=== PATIENT | female | born 1940 | race Caucasian/White ===

== ENCOUNTER → 2017-06-02 | Outpatient (CLI) | payer MEDICARE, BC ==
[2017-06-02 13:58] LABS: ALBUMIN 3.9 g/dL (3.4-5.0); CALCIUM 9.1 mg/dL (8.5-10.1); CREATININE 0.9 mg/dL (0.6-1.3); POTASSIUM 4.2 mmol/L (3.5-5.1); TOTAL BILIRUBIN 0.5 mg/dL (<0.1-1.0); TOTAL PROTEIN 7.6 g/dL (6.4-8.2)
[2017-06-02 14:26] LABS: HEMATOCRIT 37.6 % (37.0-47.0); MCH 36.4 pg (26.0-34.0); MCHC 34.4 g/dL (28.0-37.0); MCV 105.7 fL (80.0-100.0); MPV 8.9 fl. (7.2-11.1); RBC 3.56 mil/uL (4.20-5.00); RDW-CV 15.1 % (10.5-14.5); WBC 8.4 thou/uL (4.0-11.0)
[2017-06-02 19:09] LABS: IgA 249 mg/dL (64-422); IgG 876 mg/dL (700-1600); IgM 250 mg/dL (26-217)
[2017-06-04 16:12] LABS: ANA INTERPRETATION Negative (Negative); ANTI-SSA 0.3 AI (0.0-0.9)
== END ==
LOC: M.MRI 08:30
PROVIDERS: Psychiatry & Neurology Neuromuscular Medicine
DX: J32.9 Chronic sinusitis, unspecified (principal); R25.1 Tremor, unspecified; F41.9 Anxiety disorder, unspecified; R26.9 Unspecified abnormalities of gait and mobility; W19.XXXA Unspecified fall, initial encounter; Y93.89 Activity, other specified; Y92.89 Other specified places as the place of occurrence of the external cause; Y99.8 Other external cause status

== ENCOUNTER → 2018-08-24 | Outpatient (CLI) | payer MEDICARE, BC | LOC: M.MRI 14:05 | DX: Z12.31 Encounter for screening mammogram for malignant neoplasm of breast (principal); G31.9 Degenerative disease of nervous system, unspecified; G93.6 Cerebral edema; F03.90 Unspecified dementia, unspecified severity, without behavioral disturbance, psychotic disturbance, mood disturbance, and anxiety; R26.9 Unspecified abnormalities of gait and mobility ==

== ENCOUNTER → 2020-12-03 | Outpatient (CLI) | payer MEDICARE, BC | LOC: M.RAD 14:22 | PROVIDERS: ATTEND Internal Medicine | DX: Z12.31 Encounter for screening mammogram for malignant neoplasm of breast (principal) ==

== ENCOUNTER 2021-03-31 11:15 | Inpatient (IN) | payer MEDICARE, BC ==
[~2021-03-31] VITALS: Ht 154.9 cm; Wt 63.6 kg
[2021-03-31 11:18] VITALS: BP 169/58
[2021-03-31] MEDS ORDERED: OMEPRAZOLE40 MG PO (11:49)
[2021-03-31 11:50] LABS: ABSOLUTE LYMPHOCYTES 1.1 thou/uL (0.8-5.3); ABSOLUTE MONOCYTES 0.4 thou/uL (0.0-1.2); ABSOLUTE NEUTROPHILS 3.1 thou/uL (1.6-8.1); BASOPHILS 0.6 %; EOSINOPHILS 0.1 %; HEMATOCRIT 28.3 % (37.0-47.0); HEMOGLOBIN 9.5 gm/dL (12.0-15.0); LYMPHOCYTES 23.9 %; MCH 30.1 pg (26.0-34.0); MCHC 33.5 g/dL (28.0-37.0); MCV 89.9 fL (80.0-100.0); MONOCYTES 8.9 %; NUCLEATED RBCS 0 /100WBC; PLATELET COUNT* 159 thou/uL (150-400); POLYS 66.5 %; RBC 3.15 mil/uL (4.20-5.00); RDW-CV 18.3 % (10.5-14.5); WBC 4.7 thou/uL (4.0-11.0)
[2021-03-31] MEDS ORDERED: XANAX1 MG PO (11:50)
[2021-03-31] MEDS ORDERED: VITAMIN D-40010 MCG PO (11:52)
[2021-03-31] MEDS ORDERED: ALEVE220 M1 PO (11:52)
[2021-03-31] MEDS ORDERED: SIMVASTATIN40 MG PO (11:52)
[2021-03-31] MEDS ORDERED: VITAMIN B122500 MC1 PO (11:54)
[2021-03-31] MEDS ORDERED: CALCIUM500 MG PO (11:54)
[2021-03-31] MEDS ORDERED: IPRATROPIUM BRO30 ML NASAL (11:56)
[2021-03-31] MEDS ORDERED: ASA81BEC PO (11:56)
[2021-03-31 12:13] LABS: CREATININE 0.8 mg/dL (0.6-1.3); POTASSIUM 3.5 mmol/L (3.5-5.1)
[2021-03-31 12:18] LABS: ALBUMIN 3.1 g/dL (3.4-5.0); TOTAL BILIRUBIN 0.3 mg/dL (<0.1-1.0); TOTAL PROTEIN 6.5 g/dL (6.4-8.2)
[2021-03-31] MEDS ORDERED: ZOLOFT50 M1 PO (12:24)
[2021-03-31] MEDS ORDERED: VIVACTIL10 MG PO (12:24)
[2021-03-31] MEDS ORDERED: PROPRANOLOL 1010 MG PO (12:29)
--- NOTE | 2021-03-31 13:27 | EKG ---
[place] [address] ELECTROCARDIOGRAM REPORT Name: ROBINSANNAMARIA Room: [facility]#: [id number] Admission: 03/31/21 Attend Phys: Discharge: Date of : 36 Date of Service: 03/31/21 1141 Report #: [id number] THIS REPORT FOR: //name// 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: : 1940 Requested By: Sawyer Rubi Order Number: [id number] MD: Phil Aj Measurements Intervals [place] Rate: 58 P: 59 DC: 152 QRS: 68 QRSD: 81 T: 58 QT: 488 QTc: 480 Interpretive Statements Sinus rhythm Abnormal R-wave progression, early transition Minimal ST depression, inferior leads No previous ECG available for comparison Electronically Signed On 03-31-2021 13:26:56 DIRECTOR OF SUSTAINABILITY PROGRAMS by Phil Aj [email or web address] <ELECTRONICALLY SIGNED> By: Phil Aj MD, [facility] 03/31/21 1326 1141 1141 Phil Aj MD, [facility] /EPI
[2021-03-31 21:15] VITALS: BP 146/40
[2021-04-01 01:00] VITALS: BP 154/63
[2021-04-01 04:19] LABS: HEMATOCRIT 29.1 % (37.0-47.0); HEMOGLOBIN 9.6 gm/dL (12.0-15.0); MCH 30.1 pg (26.0-34.0); MCHC 33.1 g/dL (28.0-37.0); MCV 91.2 fL (80.0-100.0); MPV 9.1 fl. (7.2-11.1); RBC 3.19 mil/uL (4.20-5.00); RDW-CV 18.3 % (10.5-14.5); WBC 3.4 thou/uL (4.0-11.0)
[2021-04-01 04:41] LABS: CALCIUM 8.1 mg/dL (8.5-10.1); CREATININE 0.7 mg/dL (0.6-1.3); MAGNESIUM 1.9 mg/dL (1.8-2.4); POTASSIUM 3.8 mmol/L (3.5-5.1); TOTAL BILIRUBIN 0.3 mg/dL (<0.1-1.0); TOTAL PROTEIN 6.4 g/dL (6.4-8.2)
[2021-04-01 06:04] VITALS: BP 175/77
[2021-04-01 10:39] VITALS: BP 175/77
--- NOTE | 2021-04-01 12:17 | 2DMMODE ---
[place] [address] 2 D/M-MODE ECHOCARDIOGRAM Name: ROBINSANNAMARIA Room: [place] [address] ADM [place]#: [id number] Admission: 03/31/21 Attend Phys: Deana Chandler, Discharge: Date of : 36 Date of Service: 04/01/21 1217 Report #: [id number] THIS REPORT FOR: cc: Ml Staley MD, Lin W. MD Liston, Michael J. MD [facility] ~ APPROVED REPORT Study performed: 04/01/2021 10:43:02 EXAM: Comprehensive 2D, Doppler, and color-flow Echocardiogram Patient Location: In-Patient Room #: er Status: routine BSA: 1.62 HR: 51 bpm BP: 175/77 mmHg Rhythm: NSR Other Information Study Quality: Good Indications Congestive Heart Failure 2D Dimensions IVSd: 8.50 (7-11mm) LVOT Diam: 19.83 (18-24mm) LVDd: 46.22 mm PWd: 8.10 (7-11mm) Ascending Ao: 31.27 (22-36mm) LVDs: 19.27 (25-40mm) Aortic Root: 30.28 mm Volumes Left Atrial Volume (Systole) LA ESV Index: 41.40 mL/m2 Aortic Valve AoV Peak Zeke.: 1.32 m/s AO Peak Gr.: 7.01 mmHg LVOT Max P.59 mmHg AO Mean Gr.: 3.23 mmHg LVOT Mean P.43 mmHg LVOT Max V: 0.95 m/s AO V2 VTI: 33.56 cm LVOT Mean V: 0.53 m/s KALLIE (VTI): 2.38 cm2 LVOT V1 VTI: 25.86 [place] [address] 2 D/M-MODE ECHOCARDIOGRAM Name: ANNAMARIA ROBINS Room: [address] IN ..#: [id number] Admission: 03/31/21 Attend Phys: Deana Chandler, Discharge: Date of : 36 Date of Service: 04/01/21 1217 Report #: [id number] Mitral Valve E/A Ratio: 1.65 MV Decel. Time: 149.18 ms MV E Max Zeke.: 1.41 m/s MV PHT: 43.26 ms MVA (PHT): 5.09 cm2 TDI E/Lateral E': 15.67 E/Medial E': 17.63 Medial E' Zeke.: 0.08 m/s Lateral E' Zeke.: 0.09 m/s Pulmonary Valve PV Peak Zeke.: 0.77 m/s PV Peak Gr.: 2.35 mmHg Tricuspid Valve RAP Estimate: 5.00 mmHg TR Peak Gr.: 41.12 mmHg RVSP: 46.00 mmHg PA Pressure: 46.00 mmHg Left Ventricle The left ventricle is normal size. There is normal LV segmental wall motion. There is normal left ventricular wall thickness. Left ventricular systolic function is normal. LVEF is 55-60%. Transmitral Doppler flow pattern suggests restrictive physiology. Right Ventricle The right ventricle is normal size. The right ventricular systolic function is normal. Atria Left atrium is moderately dilated. The right atrium size is normal. Aortic Valve Mild aortic valve sclerosis. No aortic regurgitation is present. There is no aortic valvular stenosis. Mitral Valve The mitral valve is normal in structure. Mild mitral regurgitation. No evidence of mitral valve stenosis. Tricuspid Valve The tricuspid valve is normal in structure. Trace tricuspid regurgitation. Moderate pulmonary hypertension. The RVSP is 45-[place] [address] 2 D/M-MODE ECHOCARDIOGRAM Name: ANNAMARIA ROBINS Room: [address] IN [facility]#: [id number] Admission: 03/31/21 Attend Phys: Deana Chandler, Discharge: Date of : 36 Date of Service: 04/01/21 1217 Report #: [id number] Pulmonic Valve The pulmonary valve is normal in structure. Mild pulmonic regurgitation. Great Vessels The aortic root is normal in size. IVC is normal in size and collapses >50% with inspiration. Pericardium There is no pericardial effusion. <Conclusion> The left ventricle is normal size. There is normal left ventricular wall thickness. Left ventricular systolic function is normal. LVEF is 55-60%. Transmitral Doppler flow pattern suggests restrictive physiology. Left atrium is moderately dilated. Mild mitral regurgitation. Trace tricuspid regurgitation. Moderate pulmonary hypertension. The RVSP is 45-50 mmHg. IVC is normal in size and collapses >50% with inspiration. <ELECTRONICALLY SIGNED> By: Danyel Strauss MD, FACC 04/01/211216 16 16 Danyel Strauss MD, FACC /INF
[2021-04-01 14:39] VITALS: BP 160/68
[2021-04-01 18:35] VITALS: BP 130/60
[2021-04-01 22:30] VITALS: BP 176/50
[2021-04-02 02:30] VITALS: BP 141/72
[2021-04-02 04:49] LABS: MCH 30.2 pg (26.0-34.0); MCHC 33.5 g/dL (28.0-37.0); MCV 90.2 fL (80.0-100.0); RBC 3.32 mil/uL (4.20-5.00); RDW-CV 18.5 % (10.5-14.5)
[2021-04-02 05:27] LABS: ALBUMIN 3.2 g/dL (3.4-5.0); CALCIUM 8.8 mg/dL (8.5-10.1); CREATININE 0.8 mg/dL (0.6-1.3); MAGNESIUM 1.6 mg/dL (1.8-2.4); POTASSIUM 3.2 mmol/L (3.5-5.1); TOTAL BILIRUBIN 0.4 mg/dL (<0.1-1.0); TOTAL PROTEIN 6.4 g/dL (6.4-8.2)
[2021-04-02 06:32] VITALS: BP 149/52
[2021-04-02 07:22] VITALS: BP 162/94
[2021-04-02 12:00] VITALS: BP 163/41
[2021-04-02 16:00] VITALS: BP 191/81
[2021-04-02 20:00] VITALS: BP 153/90
[2021-04-03] VITALS (7 sets, daily range): BP systolic 120–159; BP diastolic 46–100
[2021-04-03 04:19] LABS: ABSOLUTE LYMPHOCYTES 1.9 thou/uL (0.8-5.3); ABSOLUTE MONOCYTES 0.8 thou/uL (0.0-1.2); ABSOLUTE NEUTROPHILS 9.8 thou/uL (1.6-8.1); BASOPHILS 0.2 %; HEMATOCRIT 30.5 % (37.0-47.0); HEMOGLOBIN 10.1 gm/dL (12.0-15.0); MCHC 33.1 g/dL (28.0-37.0); MCV 90.7 fL (80.0-100.0); MONOCYTES 6.6 %; MPV 9.5 fl. (7.2-11.1); NUCLEATED RBCS 0 /100WBC; PLATELET COUNT* 180 thou/uL (150-400); POLYS 78.2 %; RBC 3.36 mil/uL (4.20-5.00); RDW-CV 18.5 % (10.5-14.5); WBC 12.5 thou/uL (4.0-11.0)
[2021-04-03 04:32] LABS: ALBUMIN 3.2 g/dL (3.4-5.0); CALCIUM 9.2 mg/dL (8.5-10.1); MAGNESIUM 2.2 mg/dL (1.8-2.4); POTASSIUM 4.3 mmol/L (3.5-5.1); TOTAL BILIRUBIN 0.6 mg/dL (<0.1-1.0); TOTAL PROTEIN 6.7 g/dL (6.4-8.2)
[2021-04-04] VITALS: BP 136/81
[2021-04-04 06:09] VITALS: BP 145/56
[2021-04-04 07:30] VITALS: BP 149/47
[2021-04-04 11:55] VITALS: BP 146/44
[2021-04-04] MEDS ORDERED: DOXYCYCLINE 10100 MG PO (13:02)
[2021-04-04] MEDS ORDERED: DEXAMETHASONE1 MG PO (13:02)
[2021-04-04] MEDS ORDERED: PROTONIX40 M2 PO (13:02)
[2021-04-04 16:00] VITALS: BP 139/44
[2021-04-04 20:00] VITALS: BP 158/67
[2021-04-05 00:04] VITALS: BP 140/41
[2021-04-05 06:13] VITALS: BP 131/57
[2021-04-05 09:00] VITALS: BP 150/57
[2021-04-05 12:00] VITALS: BP 146/43
[2021-04-05 16:00] VITALS: BP 164/53
[2021-04-05 19:40] VITALS: BP 177/57
[2021-04-06] VITALS: BP 152/51
[2021-04-06 09:00] VITALS: BP 137/71
[2021-04-06 12:00] VITALS: BP 142/46
[2021-04-06] MEDS ORDERED: VYZULTA5 ML OPHTHALMIC (15:57)
[2021-04-06 16:11] VITALS: BP 161/63
[2021-04-06 19:10] VITALS: BP 162/62
[2021-04-07 04:45] VITALS: BP 157/71
[2021-04-07 09:52] VITALS: BP 145/56
[2021-04-07 11:57] VITALS: BP 145/50
[2021-04-07 15:40] VITALS: BP 136/45
[2021-04-07 20:34] VITALS: BP 139/51
[2021-04-08 00:22] VITALS: BP 164/56
[2021-04-08 07:35] VITALS: BP 135/74
[2021-04-08 11:57] VITALS: BP 114/57
[2021-04-08 16:17] VITALS: BP 121/55
[2021-04-08 19:45] VITALS: BP 150/80
[2021-04-09 00:29] VITALS: BP 154/67
[2021-04-09 04:00] VITALS: BP 179/71
[2021-04-09 07:25] VITALS: BP 179/79
[2021-04-09 12:00] VITALS: BP 159/57
[2021-04-09 16:00] VITALS: BP 148/62
[2021-04-09 17:06] LABS: HEMOGLOBIN 9.7 gm/dL (12.0-15.0); MCH 29.9 pg (26.0-34.0); MCHC 33.3 g/dL (28.0-37.0); MCV 89.8 fL (80.0-100.0); NUCLEATED RBCS 0 /100WBC; PLATELET COUNT* 288 thou/uL (150-400); RBC 3.23 mil/uL (4.20-5.00); RDW-CV 18.5 % (10.5-14.5); WBC 8.4 thou/uL (4.0-11.0)
[2021-04-09 17:24] LABS: ALBUMIN 2.7 g/dL (3.4-5.0); CALCIUM 8.5 mg/dL (8.5-10.1); CREATININE 0.9 mg/dL (0.6-1.3); POTASSIUM 3.8 mmol/L (3.5-5.1); TOTAL BILIRUBIN 0.4 mg/dL (<0.1-1.0); TOTAL PROTEIN 6.1 g/dL (6.4-8.2)
[2021-04-09 17:39] LABS: ABSOLUTE LYMPHOCYTES 0.7 thou/uL (0.8-5.3); ABSOLUTE MONOCYTES 0.1 thou/uL (0.0-1.2); ABSOLUTE NEUTROPHILS 7.6 thou/uL (1.6-8.1)
[2021-04-09 17:40] LABS: PLATELET ESTIMATE ADEQUATE
[2021-04-09 19:45] VITALS: BP 146/45
[2021-04-10] VITALS: BP 136/61
[2021-04-10 03:59] VITALS: BP 147/63
[2021-04-10 05:46] LABS: ABSOLUTE LYMPHOCYTES 2.4 thou/uL (0.8-5.3); ABSOLUTE MONOCYTES 0.5 thou/uL (0.0-1.2); ABSOLUTE NEUTROPHILS 3.7 thou/uL (1.6-8.1); BASOPHILS 0.3 %; EOSINOPHILS 0.4 %; HEMATOCRIT 26.6 % (37.0-47.0); HEMOGLOBIN 8.9 gm/dL (12.0-15.0); MCHC 33.2 g/dL (28.0-37.0); MCV 90.2 fL (80.0-100.0); NUCLEATED RBCS 0 /100WBC; PLATELET COUNT* 275 thou/uL (150-400); POLYS 55.3 %; RBC 2.95 mil/uL (4.20-5.00); RDW-CV 18.4 % (10.5-14.5); WBC 6.7 thou/uL (4.0-11.0)
[2021-04-10 06:27] LABS: ALBUMIN 2.5 g/dL (3.4-5.0); CALCIUM 8.2 mg/dL (8.5-10.1); CREATININE 0.8 mg/dL (0.6-1.3); POTASSIUM 3.3 mmol/L (3.5-5.1); TOTAL BILIRUBIN 0.4 mg/dL (<0.1-1.0); TOTAL PROTEIN 5.7 g/dL (6.4-8.2)
[2021-04-10 07:30] VITALS: BP 147/60
[2021-04-10 11:58] VITALS: BP 100/41
[2021-04-10 16:04] VITALS: BP 107/40
[2021-04-10] MEDS ORDERED: DEXAMETHASONE1 MG PO (17:58)
[2021-04-10] MEDS ORDERED: DOXYCYCLINE PO (18:01)
[2021-04-10] MEDS ORDERED: LIDOCAINE1 EAC1 TRANSDERM (19:35)
[2021-04-10] MEDS ORDERED: TRAMADOL 50 MG50 MG PO (19:40)
[2021-04-10] MEDS ORDERED: LOVENOX40 MG/0.4 SUBQ (19:43)
[2021-04-10] MEDS ORDERED: DOXYCYCLINE 10100 M2 PO (19:49)
== END 2021-04-10 18:39 | DRG 177 ==
LOC: M.ERS 11:15 → M.TBA-ER 13:54 → M.ORTHSURG 04-02 10:45
PROVIDERS: Family Medicine; Internal Medicine; ADMIT Internal Medicine; ATTEND Internal Medicine
PROC: XW033E5 Introduction of Remdesivir Anti-infective into Peripheral Vein, Percutaneous Approach, New Technology Group 5 (ICD-10-PCS; principal; 2021-03-31)
PROC: 5A0935A Assistance with Respiratory Ventilation, Less than 24 Consecutive Hours, High Flow/Velocity Cannula (ICD-10-PCS; 2021-04-03)
PROC: 05HY33Z Insertion of Infusion Device into Upper Vein, Percutaneous Approach (ICD-10-PCS; 2021-04-04)
DX: U07.1 COVID-19 (principal); J15.6 Pneumonia due to other Gram-negative bacteria; J96.01 Acute respiratory failure with hypoxia; J12.82 Pneumonia due to coronavirus disease 2019; S22.31XA Fracture of one rib, right side, initial encounter for closed fracture; J93.83 Other pneumothorax; E78.5 Hyperlipidemia, unspecified; K21.9 Gastro-esophageal reflux disease without esophagitis; F17.210 Nicotine dependence, cigarettes, uncomplicated; K59.00 Constipation, unspecified; D50.9 Iron deficiency anemia, unspecified; Z20.822 Contact with and (suspected) exposure to COVID-19; Z86.010 Personal history of colon polyps; Z88.8 Allergy status to other drugs, medicaments and biological substances; Z79.82 Long term (current) use of aspirin; Z79.899 Other long term (current) drug therapy

== ENCOUNTER 2021-04-10 15:38 | Inpatient (IN) | payer MEDICARE, BC ==
[~2021-04-10] VITALS: Ht 154.9 cm; Wt 63.8 kg
[~2021-04-10 15:38] MED LIST: ALEVE220 M1 PO; ASA81BEC PO; CALCIUM500 MG PO; DEXAMETHASONE1 MG PO; DOXYCYCLINE 10100 MG PO; IPRATROPIUM BRO30 ML NASAL; OMEPRAZOLE40 MG PO; PROPRANOLOL 1010 MG PO; PROTONIX40 M2 PO; SIMVASTATIN40 MG PO; VITAMIN B122500 MC1 PO; VITAMIN D-40010 MCG PO; VIVACTIL10 MG PO; VYZULTA5 ML OPHTHALMIC; XANAX1 MG PO; ZOLOFT50 M1 PO
[2021-04-10] MEDS ORDERED: DEXAMETHASONE1 MG PO (17:58)
[2021-04-10] MEDS ORDERED: DOXYCYCLINE PO (18:01)
[2021-04-10] MEDS ORDERED: LIDOCAINE1 EAC1 TRANSDERM (19:35)
[2021-04-10] MEDS ORDERED: TRAMADOL 50 MG50 MG PO (19:40)
[2021-04-10] MEDS ORDERED: LOVENOX40 MG/0.4 SUBQ (19:43)
[2021-04-10] MEDS ORDERED: DOXYCYCLINE 10100 M2 PO (19:49)
[2021-04-10 20:08] VITALS: BP 154/77
[2021-04-11 05:25] LABS: URINE BILIRUBIN NEGATIVE (Negative); URINE BLOOD NEGATIVE (Negative); URINE CLARITY CLEAR; URINE COLOR YELLOW; URINE GLUCOSE-RANDOM NEGATIVE (Negative); URINE KETONES NEGATIVE (Negative); URINE LEUKOCYTES-REFLEX NEGATIVE (Negative); URINE NITRITE-REFLEX NEGATIVE (Negative); URINE PROTEIN NEGATIVE (Negative); URINE UROBILINOGEN 0.2 E.U./dl (0.2-1.0)
[2021-04-11 08:00] VITALS: BP 131/62
[2021-04-11 10:37] LABS: ALBUMIN 2.7 g/dL (3.4-5.0); CALCIUM 8.5 mg/dL (8.5-10.1); CREATININE 0.9 mg/dL (0.6-1.3); MAGNESIUM 1.8 mg/dL (1.8-2.4); POTASSIUM 3.4 mmol/L (3.5-5.1); TOTAL BILIRUBIN 0.4 mg/dL (<0.1-1.0); TOTAL PROTEIN 6.3 g/dL (6.4-8.2)
[2021-04-11 10:46] LABS: HEMATOCRIT 29.7 % (37.0-47.0); HEMOGLOBIN 9.9 gm/dL (12.0-15.0); MCHC 33.2 g/dL (28.0-37.0); MCV 90.4 fL (80.0-100.0); MPV 9.1 fl. (7.2-11.1); RBC 3.29 mil/uL (4.20-5.00); RDW-CV 19.4 % (10.5-14.5); WBC 8.7 thou/uL (4.0-11.0)
[2021-04-11 19:15] VITALS: BP 110/55
[2021-04-12 08:04] VITALS: BP 124/66; BP 164/55
[2021-04-12 19:00] VITALS: BP 148/56
[2021-04-13 08:00] VITALS: BP 160/55
[2021-04-13 20:00] VITALS: BP 141/52
[2021-04-14 08:00] VITALS: BP 152/46
[2021-04-14 19:00] VITALS: BP 154/42
[2021-04-15 07:40] VITALS: BP 119/51
[2021-04-15 19:35] VITALS: BP 139/53
[2021-04-16 04:34] LABS: CALCIUM 8.1 mg/dL (8.5-10.1); CREATININE 0.8 mg/dL (0.6-1.3); POTASSIUM 3.8 mmol/L (3.5-5.1)
[2021-04-16 04:46] LABS: HEMOGLOBIN 8.7 gm/dL (12.0-15.0); MCH 30.1 pg (26.0-34.0); MCHC 33.7 g/dL (28.0-37.0); MCV 89.5 fL (80.0-100.0); MPV 8.9 fl. (7.2-11.1); RBC 2.9 mil/uL (4.20-5.00); RDW-CV 18.8 % (10.5-14.5)
[2021-04-16 07:40] VITALS: BP 170/70
[2021-04-16 19:45] VITALS: BP 150/53
[2021-04-17 08:03] VITALS: BP 158/64
[2021-04-17 20:00] VITALS: BP 144/45
[2021-04-18 05:36] LABS: MCH 30.4 pg (26.0-34.0); MCHC 33.5 g/dL (28.0-37.0); MCV 90.9 fL (80.0-100.0); MPV 8.6 fl. (7.2-11.1); RBC 2.64 mil/uL (4.20-5.00); RDW-CV 19.7 % (10.5-14.5); WBC 7.7 thou/uL (4.0-11.0)
[2021-04-18 06:05] LABS: CALCIUM 8.4 mg/dL (8.5-10.1); CREATININE 0.8 mg/dL (0.6-1.3); POTASSIUM 3.7 mmol/L (3.5-5.1)
[2021-04-18 08:12] VITALS: BP 164/68
[2021-04-18 20:04] VITALS: BP 145/45
[2021-04-19 07:40] VITALS: BP 175/80
[2021-04-19 20:14] VITALS: BP 146/48
[2021-04-20 07:20] VITALS: BP 147/60
[2021-04-20 19:30] VITALS: BP 135/66
[2021-04-21 07:43] VITALS: BP 138/55
[2021-04-21 19:30] VITALS: BP 131/42
[2021-04-22 08:02] VITALS: BP 146/52
[2021-04-22 20:15] VITALS: BP 138/58
[2021-04-23 05:46] LABS: HEMOGLOBIN 8.3 gm/dL (12.0-15.0); MCH 30.6 pg (26.0-34.0); MCHC 33.4 g/dL (28.0-37.0); MCV 91.4 fL (80.0-100.0); MPV 8.1 fl. (7.2-11.1); RBC 2.73 mil/uL (4.20-5.00); RDW-CV 20.1 % (10.5-14.5); WBC 8.6 thou/uL (4.0-11.0)
[2021-04-23 06:16] LABS: CREATININE 0.9 mg/dL (0.6-1.3); POTASSIUM 3.8 mmol/L (3.5-5.1)
[2021-04-23 08:13] VITALS: BP 131/66
[2021-04-23 20:11] VITALS: BP 157/56
[2021-04-24 08:00] VITALS: BP 108/54
[2021-04-24 20:12] VITALS: BP 126/48
[2021-04-25 08:14] VITALS: BP 152/66
[2021-04-25 08:21] VITALS: BP 152/66
[2021-04-25] MEDS ORDERED: TRAMADOL 50 MG50 MG PO (09:14)
[2021-04-25 12:28] VITALS: BP 152/66
== END 2021-04-25 13:35 | disposition home health service (06) | DRG 947 ==
LOC: M.REH 15:38
PROVIDERS: Internal Medicine; ADMIT Physical Medicine & Rehabilitation; ATTEND Physical Medicine & Rehabilitation
DX: R53.81 Other malaise (principal); J96.00 Acute respiratory failure, unspecified whether with hypoxia or hypercapnia; S22.41XA Multiple fractures of ribs, right side, initial encounter for closed fracture; R07.81 Pleurodynia; K21.9 Gastro-esophageal reflux disease without esophagitis; D50.9 Iron deficiency anemia, unspecified; E78.5 Hyperlipidemia, unspecified; Z88.8 Allergy status to other drugs, medicaments and biological substances; Z79.82 Long term (current) use of aspirin; Z79.899 Other long term (current) drug therapy; W18.39XA Other fall on same level, initial encounter; Y93.89 Activity, other specified; Y92.098 Other place in other non-institutional residence as the place of occurrence of the external cause; Y99.8 Other external cause status